=== PATIENT | female | born 2000 | race Caucasian/White ===

== ENCOUNTER 2024-04-20 14:00 | Emergency (ER) | payer BC, SELFPAY ==
[2024-04-20 14:06] VITALS: BP 113/68; PULSE 81; RESP 18; TEMP 37.2; O2SAT 100
--- NOTE | 2024-04-20 14:13 | ED.GENADULT ---
HPI - General Adult General Stated complaint: note for work/menstrual pains History of Present Illness HPI narrative: Patient presents requesting a work note for menstrual cramps. Patient states she has a Nexplanon and does not have monthly periods but when she does have occasional. The cramping is worse than normal. Patient has taken ibuprofen but states she is nauseated due to the pain from the cramping and she missed work due to the pain and discomfort. Patient states her flow is not any heavier than normal no clots no heavy bleeding just the painful cramping. Related Data Home Medications Medication Instructions Recorded Confirmed escitalopram oxalate 20 mg tablet 20 mg PO DAILY 04/20/24 04/20/24 olanzapine 10 mg tablet 5 mg PO BID 04/20/24 04/20/24 oxcarbazepine 300 mg tablet See Rx Instructions .Route .COMPLEX 04/20/24 04/20/24 Allergies Allergy/AdvReac Type Severity Reaction Status Date / Time No Known Allergies Allergy Verified 04/20/24 14:14 Review of Systems Review of Systems: CONSTITUTIONAL: Denies fever, chills, or sweats. EYES: Denies visual changes, redness, or discharge. ENT: Denies rhinorrhea, congestion, sore throat, or otalgia. CARDIOVASCULAR: Denies chest pain, palpitations, or edema. RESPIRATORY: Denies cough or dyspnea. GASTROINTESTINAL: Denies abdominal pain, nausea, vomiting, or diarrhea. GENITOURINARY: Denies dysuria or hematuria. SKIN: Denies rash or itching. MUSCULOSKELETAL: Denies back pain, joint pain, or myalgia. NEUROLOGIC: Denies headache, numbness, or weakness. PSYCHIATRIC: Denies anxiety or depression. PMFSH Social History Social History Gender identity (if verbalized by the patient): Female Comments At time of signature, agree with nursing past medical, surgical, social and family history. There is no relevant family history pertinent to the presenting complaint Exam Narrative: GENERAL: Well-appearing, well-nourished, and in no acute distress. HEAD: Normocephalic, atraumatic. EYES: PERRLA and EOMI. ENT: Nares clear, no rhinorrhea or epistaxis. Mucous membranes moist. NECK: Supple. CHEST: Clear to auscultation. No respiratory distress. HEART: Regular rate and rhythm. No murmur heard. Normal peripheral pulses. ABDOMEN: Soft, nontender, nondistended, normal active bowel sounds. EXTREMITIES: Normal range of motion. No edema. SKIN: Warm, dry, no rash. NEURO: No focal deficits. Alert and oriented x3. [place] Coma Scale Eye Opening: Spontaneous 4 [place] Coma Scale Motor: Obeys Commands 6 [place] Coma Scale Verbal: Oriented 5 Franca Coma Scale Total 15 Course Course Level of Care: Express Care Visit Discharge Plan Discharge Clinical Impression: Menstrual cramp Patient Disposition: Home, Self-Care Condition: Stable Instructions: Dysmenorrhea (ED) Additional Instructions: Follow-up with primary care provider in 2-3 days for re-evaluation Tylenol alternating with ibuprofen for pain and discomfort If any new or worsening symptoms please go to emergency room for further evaluation treatment Prescriptions: No Action No Home Medications Follow-up/Referrals: PHYSICIAN,[employer] [Primary Care Provider] - Stand Alone Forms: Work/School Release IP
[2024-04-20 14:16] VITALS: BP 113/68; PULSE 81; RESP 18; TEMP 37.2; O2SAT 100
== END 2024-04-20 14:20 | disposition home or self-care (01) ==
PROVIDERS: Emergency Provider Nurse Practitioner Family
DX: N94.6 Dysmenorrhea, unspecified (principal)
CPT/HCPCS: 99211; G0463